=== PATIENT | female | born 1960 | race Caucasian/White ===

== ENCOUNTER → 2017-05-02 | Outpatient (CLI) | payer OTHER ==
[2017-05-02 11:40] LABS: ADD HIVPANEL? NO; HIV (1 AND 2) ANTIBODY NEGATIVE (NEGATIVE)
== END ==
LOC: OD 08:27
PROVIDERS: ATTEND Internal Medicine Gastroenterology
DX: Z52.9 Donor of unspecified organ or tissue (principal)
CPT/HCPCS: 36415; 80074; 86592; 86701; 87045; 87177; 87205; 87324